=== PATIENT | male | born 1970 | race Caucasian/White ===

== ENCOUNTER 2018-05-18 20:24 | Observation (INO) ==
[2018-05-18] MEDS ORDERED: D5% in 0.45% NACL w KCl 20 MEQ/1,000 ML MLS IVC ONE (23:11)
[2018-05-18] MEDS ORDERED: *HR* Dextrose 50 % in Water (Syg) 50 ML SYRINGE IVP PRN (23:23)
[2018-05-18] MEDS ORDERED: Insulin LISPRO 300 UNITS/3 ML VIAL SQ PRN (23:23)
[2018-05-18] MEDS ORDERED: Naloxone 0.4 MG/ML INJ IVP PRN (23:23)
[2018-05-18] MEDS ORDERED: 0.9 % Sodium Chloride 1,000 ML IVC SCH (23:30)
[2018-05-18] MEDS: D5% in 0.45% NACL w KCl 20 MEQ/1,000 ML MLS IVC PRN (23:30)
[2018-05-18] MEDS ORDERED: Insulin Human Regular 100 UNIT in 0.9 % Sodium Chloride 100 ML IVC SCH (23:45)
--- NOTE | 2018-05-19 00:23 | Internal Med History&Physical ---
Date of Encounter: 05/19/18 Time of Encounter: 00:20 Internal Medicine - H&P: HPI Chief complaint: Abdominal Pain History of present illness: Mr. Cortes is a 47 year old male with a past medical history of type 1 diabetes which was diagnosed 3 years ago who presents with 3 day history of abdominal pain, nausea and vomiting. Patient noted epigastric pain which began approximately 3 days ago. Pain was 9 out of 10 in intensity, described as burning similar to heartburn that radiated across his abdomen and was associated with frequent belching. Patient had 3 episodes of nonbloody nonbilious emesis consisting of clear liquids. Patient denies any episodes of diarrhea. His epigastric pain became progressively worse up until prior to admission stating that he was having difficulty breathing because of the pain. Patient urged him to come into the ED only at [facility]. Patient recently relocated to [place] from [place] around the beginning of April. He has not yet established care with a primary care physician and states that he has not had his long-acting insulin i.e. Lantus since April as well and has been only using his NovoLog. Patient also reports that he has been reusing his needles because he cannot afford to buy new ones. He has not checked his blood sugars in the past few 2 days. States he has been under stress, currently living with his in-laws and has been paying out of pocket for most of his medical needs. He denies any fever, chills, chest pain, headache, runny nose, sore throat. He sick contacts. Upon arrival to [place] patient was found to have a blood sugar of in excess of 500. With a arterial blood gas of 7.15. An abdominal CT scan was performed which showed distended stomach and duodenum to the level of the superior mesenteric artery which can be seen in the setting of SMA syndrome. No acute findings in the abdomen and pelvis otherwise. Past Med Surg Social Fam HX - Past Medical History Medical history: diabetes Additional medical history: CHRONIC BACK ISSUES Psychiatric history: depression - Past Surgical History Surgical History: appendectomy - Social History Smoking Status: Current every day smoker Packs per day: 1 Smokeless Tobacco Status: No Alcohol use: none Drug use: none Internal Medicine - H&P: Meds Escitalopram [Lexapro] 20 mg PO DAILY 05/18/18 [History] Insulin Glargine [Lantus] 12 unit SQ HS #1 vial 05/20/18 [Rx] Insulin LISPRO [Humalog] 4 unit SQ ACHS #1 vial 05/20/18 [Rx] Insulin LISPRO [Humalog] 100 unit SQ WMHS #1 vial 05/20/18 [Rx] Pen Needle, Diabetic [Pen Needle] 1 each ACHS #50 dis.needle 05/20/18 [Rx] Syrge-Ndl,Ins 0.3 ml Half Luis [Insulin Syringe] 1 each [facility] #100 disp.syrin 05/20/18 [Rx] 3 Allergy/AdvReac Type Severity Reaction Status Date / Time No Known Allergies Allergy Verified 05/18/18 16:44 All Systems PM: A 10-system review of systems was performed and is negative for pertinent findings except as documented above in the HPI. - Constitutional Constitutional: no chills, no fever(s), no night sweats - EENT Eyes: no change in vision, no discharge, no pain, no photophobia Ears: no ear discharge, no ear pain, no tinnitus Nose, mouth and throat: no dysphagia, no nasal discharge, no neck pain, no sore throat - Cardiovascular Cardiovascular ROS IM: no chest pain, no diaphoresis, no dyspnea, no lightheadedness, no palpitations, no syncope - Respiratory Respiratory: no cough, no dyspnea, no wheezing, no excessive phlegm production - Gastrointestinal Gastrointestinal: no abdominal pain, no diarrhea, no hematemesis, no hematochezia, no melena, no nausea, no vomiting - Musculoskeletal Musculoskeletal ROS IM: no numbness, no tingling - Integumentary Integumentary IM: no rash, no unusual bruising - Neurological Neurological ROS: no confusion, no convulsions, no focal weakness, no numbness, no tingling, no tremor(s) - Hematologic/Lymphatic Hematologic/Lymphatic: no easy bruising - Constitutional Vitals: Temp Pulse Resp BP Pulse Ox 98.3 F 75 18 118/78 99 05/18/18 23:10 05/18/18 23:10 05/18/18 23:10 05/18/18 23:10 05/18/18 23:10 Exam: General: Alert and oriented 3. Lying in bed in no acute distress Skin:Normal color, no rash, no lesions. HEENT:EOM, pupils equal, round and reactive. Cardiovascular:Normal S1 & S2, no rubs, murmurs or gallops. No JVD. Pulse regular. Lungs:Normal breath sounds, no wheezes or crackles. Abdomen: . Mild abdominal tenderness to palpation diffusely. No rebound or guarding.. Extremities:No deformity, no edema or tenderness, no joint swelling or clubbing. Neurological:Normal cognition and motor skills. Pulses:Carotid and radial pulses normal +2. Rest of the physical exam is non contributory Internal Med - H&P Results - Labs CBC & Chem 7: 05/20/18 05:34 05/20/18 05:34 - Assessment and plan (1) DKA, type 1 Status: Acute Assessment and plan: DKA likely secondary to medication noncompliance. Patient has been off his long -acting insulin since the beginning of April and has not been checking his blood sugars. Additionally patient has been reusing the same needles for injection of his NovoLog. We will obtain blood cultures to rule out a infectious precipitating etiology. Continue DKA protocol and transition to subcutaneous insulin once As closed. Patient will likely need endocrinology consult as well as social science research assistant consult for aid in obtaining his insulin prior to discharge. Qualifiers: Diabetes mellitus complication detail: without coma Qualified Code(s): E10.10 - Type 1 diabetes mellitus with ketoacidosis without coma (2) Lactic acidosis Status: Acute Assessment and plan: Elevated lactic acid of 3.2 which trended upward to 3.6 before returning to normal at 1.8. The etiology of his lactic acid at this point is not clear. This may be related to his abdominal pain and decreased by mouth. Per history patient has been reusing his insulin syringes so there is concern the patient may be introduced a infection/bacteremia and this may be reflecting a brewing septic process which now seems to be resolving. Patient did receive 1 dose of Rocephin prior to transfer here. Blood cultures obtained. (3) Hyponatremia Status: Acute Assessment and plan: Hyponatremia in the setting of hyperglycemia. Most likely will improve after correction of his hyperglycemia. We will monitor (4) Metabolic acidosis due to diabetes mellitus Status: Acute Assessment and plan: Ms. setting of diabetic ketoacidosis. Treat underlying cause. (5) Abdominal pain Status: Acute Assessment and plan: Abdominal pain in the setting of diabetic ketoacidosis. As mentioned above, abdominal CT scan showed a distended stomach and duodenum to the level of the SMA. Radiologist reports that this may be seen in the setting of SMA syndrome. Otherwise no acute findings in the abdomen or pelvis. We will monitor for now for signs of improvement after correction of DKA. Consider surgery consult for further evaluation of possible SMA syndrome. Qualifiers: Abdominal location: epigastric Qualified Code(s): R10.13 - Epigastric pain - Time Spent With Patient Total time spent is greater than 50% in coordination of care (as documented) at patient's floor/unit and/or counseling patient:
[2018-05-19 00:27] LABS: Hemoglobin 14.3 g/dL (12.9-16.9); Mean Corpuscular HGB Conc 34.9 g/dL (31.6-35.5); Mean Corpuscular Hemoglobin 31.6 pg (28.0-33.3); Mean Corpuscular Volume 90.5 fL (83.0-100.0); Mean Platelet Volume 10.6 fL (9.4-12.4); Platelet Count 216 K/mcL (140-400); Red Blood Count 4.53 M/mcL (4.19-5.50); Red Cell Distribution Width 13.5 % (11.5-14.5)
[2018-05-19 00:30] LABS: VBG HCO3 19 mEq/L (21-27); VBG PCO2 39 mmHg (41-51); VBG PH 7.29 pH Units (7.32-7.42); VBG PO2 82 mmHg (25-50)
[2018-05-19 00:48] LABS: Alanine Aminotransferase 31 Units/L (7-52); Albumin 3.2 g/dL (3.5-5.7); Albumin/Globulin Ratio 1.7 (1.1-2.2); Alkaline Phosphatase 80 Units/L (34-104); Aspartate Amino Transferase 22 Units/L (13-39); BUN/Creatinine Ratio 15 (6-26); Bilirubin,Total 0.3 mg/dL (0.3-1.0); Blood Urea Nitrogen 15 mg/dL (6-20); Calcium 7.6 mg/dL (8.6-10.3); Carbon Dioxide 17 mEq/L (23-29); Chloride 108 mEq/L (98-107); Globulin 1.9 g/dL (2.4-3.5); Glucose 129 mg/dL (70-105); Osmolality,Calculated 281 (280-300); Potassium 4.1 mEq/L (3.5-5.1); Sodium 134 mEq/L (136-145); Total Protein 5.1 g/dL (6.4-8.9); eGFR For Non-African Americans > 60 (> 60)
[2018-05-19] MEDS: D5% in 0.45% NACL w KCl 20 MEQ/1,000 ML MLS IVC PRN (03:31)
[2018-05-19 05:19] LABS: VBG HCO3 20 mEq/L (21-27); VBG PCO2 38 mmHg (41-51); VBG PH 7.34 pH Units (7.32-7.42); VBG PO2 148 mmHg (25-50)
[2018-05-19 05:41] LABS: BUN/Creatinine Ratio 16 (6-26); Blood Urea Nitrogen 13 mg/dL (6-20); Calcium 7.2 mg/dL (8.6-10.3); Carbon Dioxide 18 mEq/L (23-29); Chloride 110 mEq/L (98-107); Glucose 174 mg/dL (70-105); Osmolality,Calculated 282 (280-300); Sodium 134 mEq/L (136-145); eGFR For Non-African Americans > 60 (> 60)
[2018-05-19] MEDS ORDERED: Insulin DETEMIR 100 UNIT/ML X5UNITS SQ ONE (05:57)
[2018-05-19] MEDS ORDERED: Dextrose Gel 15 GM/37.5 ML TUBE PO PRN ×2 (05:59)
[2018-05-19] MEDS ORDERED: D5% in Water 1,000 ML IVC PRN (05:59)
[2018-05-19] MEDS: Insulin LISPRO 300 UNITS/3 ML VIAL SQ SCH ×3 (08:16→16:48)
--- NOTE | 2018-05-19 12:37 | Internal Med Progress Note ---
Hospitalist Progress Note - Encounter Date of Encounter: 05/19/18 Time of Encounter: 12:27 - Subjective Interval History: Patient seen and examined at bedside. Patient no acute overnight events. Anion gap now closed and insulin drip off, long-acting insulin was given and patient ate breakfast. Patient states he feels much improved abdominal pain is nearly resolved. Patient has not started working and just moved to the area with no physician and has no means of obtaining insulin currently. RN to contact perinatal social worker regarding help for safe discharge plan. Patient denies any chest pain, shortness breath, nausea, vomiting, diarrhea. Admits to mild abdominal pain that is much improved. - Exam Vitals: Temp Pulse Resp BP Pulse Ox 98.4 F 66 18 100/64 97 05/19/18 11:31 05/19/18 11:51 05/19/18 11:31 05/19/18 11:31 05/19/18 11:31 Exam: Constitutional: No acute distress, Alert HEENT: NCAT, EOMI Neck: supple, no JVD Cardio: regular rate and rhythm, +s1s2, no murmurs/rubs/gallops Resp: clear to ascultation bilaterally, no wheezes/rales/ronchi Abd: soft, non tender/non distended, positive bowel sounds, no gaurding/reboud/ ridgitity Extremities: no clubbing/cyanosis/edema appreciated Neuro: no focal deficits appreciated - Assessment and Plan (1) DKA, type 1 Current Visit: Yes Status: Acute Assessment and Plan: DKA likely secondary to medication noncompliance -Has no long acting insulin and has not started working and has no means of obtaining his insulin -Gap closed -long acting insulin given -low dose ssi -accuchecks -check BMP in am unless clinical indication to recheck prior -Social work consulted for safe discharge plan (2) Lactic acidosis Current Visit: Yes Status: Acute Assessment and Plan: -Elevated lactic acid of 3.2 -2/2 dka with hypovolemia -resolved (3) Hyponatremia Current Visit: Yes Status: Acute Assessment and Plan: -Hyponatremia in the setting of hyperglycemia. -corrected is WNL (4) Metabolic acidosis due to diabetes mellitus Current Visit: Yes Status: Acute Assessment and Plan: HAGMA 2/2 DKA -Resolved -am bmp (5) Abdominal pain Current Visit: Yes Status: Acute Assessment and Plan: -Abdominal pain in the setting of diabetic ketoacidosis. - abdominal CT scan showed a distended stomach and duodenum to the level of the SMA. Radiologist reports that this may be seen in the setting of SMA syndrome. Otherwise no acute findings in the abdomen or pelvis. - abdominal pain nearly resolved; likely 2/2 dka - however will monitor; if develops abd again will consider further evaluation for SMA syndrome DVT Prophylaxis: hep sq - Summary of Assessment and Plan Summary of Assessment and Plan: -Social work consulted for safe discharge plan -no insurance -cannot afford medication - Time Spent with Patient Total time spent is greater than 50% in coordination of care (as documented) at patient's floor/unit and/or counseling patient: 25 - 35 minutes Plan of Care Discussed with: patient Internal Medicine: Result - Labs CBC & Chem 7: 05/19/18 00:17 05/19/18 05:04 Labs: Short CBC 05/19/18 Range/Units 00:17 WBC 11.1 (4.3-11.1) K/mcL Hgb 14.3 D (12.9-16.9) g/dL Hct 41.0 (37.5-50.1) % Plt Count 216 (140-400) K/mcL BMP 05/19/18 05/19/18 00:17 05:04 Sodium 134 L 134 L Potassium 4.1 4.0 Chloride 108 H 110 H Carbon Dioxide 17 L 18 L BUN 15 13 Creatinine 0.99 0.79 Glucose 129 H 174 H Calcium 7.6 L 7.2 L Cardiac Enzymes 05/19/18 Range/Units 00:17 Troponin I < 0.03 (< 0.04) ng/mL Liver Function 05/19/18 Range/Units 00:17 Total Bilirubin 0.3 (0.3-1.0) mg/dL AST 22 (13-39) Units/L ALT 31 (7-52) Units/L Alkaline Phosphatase 80 (34-104) Units/L Albumin 3.2 L (3.5-5.7) g/dL Consult Discharge Plan - Plan Referrals: NONE,PCP [Primary Care Provider] - [facility] [Other] (1) DKA, type 1 Qualifiers: Diabetes mellitus complication detail: without coma Qualified Code(s): E10.10 - Type 1 diabetes mellitus with ketoacidosis without coma (5) Abdominal pain Qualifiers: Abdominal location: epigastric Qualified Code(s): R10.13 - Epigastric pain
[2018-05-19] MEDS ORDERED: Acetaminophen 325 MG TABLET PO PRN (14:38)
[2018-05-19] MEDS: *HR* Heparin 5,000 UNIT/ML VIAL SQ SCH (17:30)
[2018-05-19] MEDS ORDERED: Insulin LISPRO 300 UNITS/3 ML VIAL SQ SCH (21:00)
[2018-05-19] MEDS ORDERED: Insulin DETEMIR 100 UNIT/ML X5UNITS SQ SCH ×2 (21:00)
[2018-05-20] MEDS: *HR* Heparin 5,000 UNIT/ML VIAL SQ SCH (06:38)
[2018-05-20 06:57] LABS: Basophils # 0.1 K/mcL (0.0-0.2); Basophils % 1.3 %; Eosinophils # 0.2 K/mcL (0.0-0.6); Eosinophils % 4.3 %; Hemoglobin 13.9 g/dL (12.9-16.9); Immature Granulocytes % 0.4 % (0-4); Lymphocytes # 2.3 K/mcL (0.6-4.6); Lymphocytes % 42.1 %; Mean Corpuscular HGB Conc 34.8 g/dL (31.6-35.5); Mean Corpuscular Hemoglobin 31.2 pg (28.0-33.3); Mean Corpuscular Volume 89.7 fL (83.0-100.0); Mean Platelet Volume 11.3 fL (9.4-12.4); Monocytes # 0.4 K/mcL (0.0-1.3); Monocytes % 7.6 %; Neutrophils # 2.4 K/mcL (1.6-8.9); Platelet Count 176 K/mcL (140-400); Red Blood Count 4.46 M/mcL (4.19-5.50); Red Cell Distribution Width 13.7 % (11.5-14.5); Segmented Neutrophils % 44.3 %
[2018-05-20] MEDS: Insulin LISPRO 300 UNITS/3 ML VIAL SQ SCH ×2 (07:44→11:36)
[2018-05-20] MEDS ORDERED: Insulin DETEMIR 100 UNIT/ML X5UNITS SQ ONE (09:00)
[2018-05-20 09:30] LABS: BUN/Creatinine Ratio 22 (6-26); Blood Urea Nitrogen 15 mg/dL (6-20); Calcium 8.2 mg/dL (8.6-10.3); Carbon Dioxide 21 mEq/L (23-29); Chloride 110 mEq/L (98-107); Glucose 45 mg/dL (70-105); Osmolality,Calculated 286 (280-300); Potassium 3.5 mEq/L (3.5-5.1); Sodium 139 mEq/L (136-145); eGFR For Non-African Americans > 60 (> 60)
[2018-05-20 10:39] LABS: Estimated Average Glucose 341 mg/dl; Hemoglobin A1C 13.5 %
[2018-05-20 11:27] VITALS: BP 115/77
--- NOTE | 2018-05-20 12:30 | Discharge Summary ---
- NOTES TO OUTPATIENT PROVIDER Notes to Outpatient Provider: Pt obtains insurance on 05/22. Was discharged with Rx for one vial of humalog and one vial of lantus as that is what he could afford. It will be more than enough to last him until he obtains insurance and sees his doctor. A1C is 13.5 Orders not resulted at time of discharge: Pending orders 05/19/18 01:21 Culture,Blood [BC] Stat Date of Encounter: 05/20/18 Time of Encounter: 12:26 - Discharge Diagnosis (1) DKA, type 1 Priority: Primary Status: Acute Qualifiers: Diabetes mellitus complication detail: without coma Qualified Code(s): E10.10 - Type 1 diabetes mellitus with ketoacidosis without coma (2) Lactic acidosis Priority: Secondary Status: Acute (3) Hyponatremia Priority: Secondary Status: Acute (4) Metabolic acidosis due to diabetes mellitus Priority: Secondary Status: Acute (5) Abdominal pain Priority: Secondary Status: Acute Qualifiers: Abdominal location: epigastric Qualified Code(s): R10.13 - Epigastric pain Hospital course: Mr. Cortes is a 47 year old male who presented with abdominal pain, neausea and vomiting to the emergency department. The patient been without his Lantus for 1 month secondary to being unemployed The patient was found to be in DKA and started on DKA protocol. The patient's anion gap and lactic acidosis improved as did his abdominal pain. There was concern for SMA syndrome seen on CT scan however the patient's abdominal pain improved completely so I doubt that this was contributing. The patient starts a new job and will have insurance on 05/22/2018. Significant resources for used to try to find the patient insulin that he could afford with the amount he had left on his healthcare spending card (about 300 dollars). Eventually we were able to find the patient a coupon for Lantus and Humalog for one vial each that would be covered with his healthcare spending card amount. These prescriptions were written exactly as per the coupon and given to the patient. The patient was also given prescription for one box of syringes and one box of needles and pricing was done on that as well and the patient said he could afford that. Patient states that he has glucometer, lancets, and testing strips at home. The patient improved rapidly and blood sugar was controlled. The patient did have 1 hypoglycemic glucose reading; this was secondary to a.m. Lantus over lap in with p.m. Lantus (as the insulin drip was disconintued in the morning when he got his first dose of lantus). The patient's home regimen was restarted Lantus of 12 units at night and short acting with meals. The patient is stable condition and was adamant about leaving today, the patient states he was given a leave no matter what. This was the safest discharge plan that we could come up with. The patient will be referred to the residency clinic for primary care physician follow up. The patient was given 2 refills of each of these insulins but instructed that he should follow-up with a physician within one week. The patient was instructed that should he develop develop abdominal pain, nausea, vomiting, high or low blood sugar, he should return to the emergency department. All questions were answered. Discharge discussed with: patient, nurse Time spent discussing smoking cessation with patient: 3 to 10 minutes - Time Spent with Patient Total time spent providing and/or coordinating discharge services: Greater than 30 minutes - Discharge Medications Prescriptions: Insulin Glargine [Lantus] 12 unit SQ HS #1 vial Insulin LISPRO [Humalog] 100 unit SQ [facility] #1 vial Pen Needle, Diabetic [Pen Needle] 1 each ACHS #50 dis.needle Syrge-Ndl,Ins 0.3 ml Half Luis [Insulin Syringe] 1 each [facility] #100 disp.syrin Home Medications: Escitalopram [Lexapro] 20 mg PO DAILY 05/18/18 [History] Insulin Glargine [Lantus] 12 unit SQ HS #1 vial 05/20/18 [Rx] Insulin LISPRO [Humalog] 100 unit SQ [facility] #1 vial 05/20/18 [Rx] Pen Needle, Diabetic [Pen Needle] 1 each ACHS #50 dis.needle 05/20/18 [Rx] Syrge-Ndl,Ins 0.3 ml Half Luis [Insulin Syringe] 1 each ACH[facility] #100 disp.syrin 05/20/18 [Rx] Allergies/Adverse Reactions: 3 Allergy/AdvReac Type Severity Reaction Status Date / Time No Known Allergies Allergy Verified 05/18/18 16:44 Date of admission: 05/18/18 23:03 Primary care physician: PCP NONE Consults: 05/18/18 23:35 Consult to Post Office Manager [CONS] Routine Reason for SW Consult: Financial concerns 05/18/18 23:53 Consult for Pharmacy Education [CONS] Routine Reason for Consult: DKA, unsure about insulin/medications ordered Call Completed: No Consult to Endocrinology [CONS] Routine Consulting Provider: Endocrinology & Diabetes Tammie Reason for Consult: DKA, no prev. education Call Completed: No - Constitutional Vitals: Temp Pulse Resp BP Pulse Ox 98.4 F 60 18 115/77 99 05/20/18 11:24 05/20/18 11:24 05/20/18 11:24 05/20/18 11:24 05/20/18 11:24 Exam: Constitutional: No acute distress, Alert HEENT: NCAT, EOMI Neck: supple, no JVD Cardio: regular rate and rhythm, +s1s2, no murmurs/rubs/gallops Resp: clear to ascultation bilaterally Abd: soft, non tender/non distended, positive bowel sounds Extremities: no clubbing/cyanosis/edema appreciated Neuro: no focal deficits appreciated - Patient Status Disposition: Home, Self-Care Condition: Good Functional capacity at discharge: independent ambulation Overall status at discharge: patient is back to baseline - Discharge Instructions Instructions: Diabetes Mellitus Type 2 in Adults (DC) Follow Up With: [facility] [Other] NONE,PCP [Primary Care Provider] - - Diet and Activity Activity: increase activity as tolerated Diet: advance to your usual diet, diabetic diet
[2018-05-20] MEDS ORDERED: Insulin DETEMIR 100 UNIT/ML X5UNITS SQ SCH (21:00)
--- NOTE | 2018-05-22 21:23 | Electrocardiograph Report ---
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
== END 2018-05-20 14:40 | disposition home or self-care (01) ==
LOC: 2NNU → SUATTDRO 23:03
PROVIDERS: ADMIT Internal Medicine; ATTEND Internal Medicine